=== PATIENT | female | born 1965 | race Caucasian/White ===

== ENCOUNTER 2023-11-30 07:05 | Observation (INO) ==
--- NOTE | 2023-11-30 07:16 | ED.PDOC ---
General ED Provider: Dr. COLLEEN ALEJANDRO MD Chief Complaint: Shortness of Air Stated Complaint: Patient is a 58-year-old female that reported to the emergency department for cough and shortness of breath times 2 weeks. Patient stated that on November 08, 2023 [facility] for bacterial pneumonia. Patient stated that she spent several days in the hospital and was told that prior to discharge that she had cleared a bacterial pneumonia and that her labs looked well. Patient stated that she got home and did well for a few days but then started to have cough and eventually progressive shortness of breath. Patient stated that she does not use home O2. Patient states that she does smoke daily at least 1 pack. Patient stated that her cough was productive. Patient did know what color her sputum was she said that she thought it was yellowish. Patient stated that she has not had any blood in the sputum. When asked about if she has had a fever she stated that she was in the doctor's that she only thought she may have a fever but she has not taken her own temperature. EMS stated that she was afebrile. EMS also stated that when they arrived to her house that she was coughing and she had an O2 sat of 90% on room air. They stated that they placed patient on 2 L of nasal cannula and it brought her up to 97%. Patient denied any chest pain, nausea, vomiting, diarrhea, dizziness, syncope, loss of consciousness, or any other acute symptoms not currently mentioned in HPI. Patient's vital signs are currently stable with a heart rate of 105, SpO2 of 97% on 2 L nasal cannula, blood pressure 103/80, and respiratory rate of 24 breaths/min. Patient's GCS is 15. Time Seen by Provider: 11/30/23 07:09 Mode of Arrival: Ambulance Information Source: Patient and EMT Exam Limitations: No limitations Primary Care Provider: HERACLIO TILLMAN Nursing and Triage Documentation Reviewed and Agree: Yes Does Patient Take Opioids?: No Is Patient Opioid Naive?: No What is Opioid Naive?: *Opioid Naive implies the patient is not already taking opioids or not chronically receiving opioids on a daily basis. *PRN dosing is not "usually" associated with tolerance. *Patients are at higher risk of over-sedation and aspiration. Is Patient Opioid Tolerant?: No What is Opioid Tolerant?: *Opioid Tolerance implies less than the expected response to an opioid. *Acquired tolerance is defined by the patient taking 60mg of oral morphine daily (or equianalgesic dose of another opioid) for 1 week or more. *Often associated with chronic pain. *May take more than usual dose to achieve desired pain control. Review of Systems Review Of Systems Constitutional: Reports No symptoms Eyes: Reports No symptoms Ears, Nose, Mouth, Throat: Reports No symptoms Respiratory: Reports Cough, Shortness of Breath and Wheezing Cardiac: Reports No symptoms GI: Reports No symptoms : Reports No symptoms Musculoskeletal: Reports No symptoms Skin: Reports No symptoms Neurological: Reports No symptoms Endocrine: Reports No symptoms Hematologic/Lymphatic: Reports No symptoms All Other Systems: Reviewed and Negative Physical Exam Physical Exam Appearance: Reports Other (Patient's had increased respirations and appeared to be short of breath. When placed on nasal cannula 2 L patient appears to slow her breathing down and is more comfortable.) Ill-appearing: Mild Pain Distress: None Eyes: Reports MATTHEW, EOMI and Conjunctiva clear ENT: Reports Nose normal and Oropharynx normal Neck: Supple Respiratory: Reports Airway patent, Breath sounds equal, Breath sounds diminished (Breath sounds diminished in the left mid and lower lung fernandez.), Respirations nonlabored and Crackles (Crackles in the mid and lower lung fernandez bilaterally.) Cardiovascular: Reports Pulses normal, No rub, No murmur and Tachycardia (Apical pulse of 110 bpm.) GI/: Reports Soft, Nontender, No masses and Bowel sounds normal Musculoskeletal: Reports Normal strength, ROM intact and No edema Skin: Reports Warm, Dry and Normal color Neurological: Reports Sensation intact, Motor intact, Reflexes intact, Cranial nerves intact, Alert and Oriented Psychiatric: Reports Affect appropriate and Mood appropriate Course Course 11/30/23 07:30 Orders, Labs, Meds: Lab Review 11/30/23 07:30 WBC 11.61 H RBC 3.18 L Hgb 9.0 L Hct 29.0 L MCV 91.2 MCH 28.3 MCHC 31.0 L RDW Coeff of Graciela 16.9 H Plt Count 320 Immature Gran % (Auto) 0.7 Neut % (Auto) 68.5 Lymph % (Auto) 23.9 Terrell % (Auto) 6.6 Eos % (Auto) 0.1 Baso % (Auto) 0.2 Neut # (Auto) 8.0 H Lymph # (Auto) 2.8 Terrell # (Auto) 0.8 Eos # (Auto) 0.0 Baso # (Auto) 0.0 Immature Gran # (Auto) 0.1 ESR Pending Orders Category Date Time Status ABG DRAW REQUEST Stat CARDIO 11/30/23 07:09 Ordered NEBULIZER TREATMENT Stat CARDIO 11/30/23 07:16 Ordered NEBULIZER TREATMENT Stat CARDIO 11/30/23 07:17 Ordered ED APPLY O2 .ONCE EMERGENCY 11/30/23 07:09 Active ED CONGRESSIONAL ASSISTANT APPLIED .ONCE EMERGENCY 11/30/23 07:09 Active ED IV/MEDIPORT/POWERPORT .ONCE EMERGENCY 11/30/23 07:09 Active ED VITAL SIGNS .ONCE EMERGENCY 11/30/23 07:09 Active ABG COOX Stat LAB 11/30/23 07:53 Received C-REACTIVE PROTEIN Stat LAB 11/30/23 07:30 Received CBC W/ AUTO DIFF Stat LAB 11/30/23 07:30 Results COMPREHENSIVE METABOLIC PANEL Stat LAB 11/30/23 07:30 Received D-DIMER Stat LAB 11/30/23 Ordered ESR Stat LAB 11/30/23 07:30 Results FLU A/B MOLECULAR Stat LAB 11/30/23 07:14 Received LACTIC ACID Stat LAB 11/30/23 07:30 Received MAGNESIUM Stat LAB 11/30/23 07:30 Received MRSA SCREEN Routine LAB 11/30/23 07:35 Received PROCALCITONIN Stat LAB 11/30/23 07:30 Received PT WITH INR Stat LAB 11/30/23 07:30 Received RSV Stat LAB 11/30/23 07:14 Received SARS COV-2 RNA RAPID KARINE Stat LAB 11/30/23 07:14 Received SPUTUM CULTURE Stat LAB 11/30/23 07:09 Uncollected URINALYSIS C & S IF INDICATED Stat LAB 11/30/23 07:09 Uncollected 0.9 % Sodium Chloride [Saline Flush] Meds 11/30/23 07:09 Active 1 syr IVF PRN PRN Ipratropium/Albuterol Neb [Duoneb] Meds 11/30/23 07:16 Discontinued 3 ml NEB ONCE STA Ipratropium/Albuterol Neb [Duoneb] Meds 11/30/23 07:16 Discontinued 3 ml NEB ONCE STA Methylprednisolone Sod Succ/Pf [Solu-Medrol 125 mg] Meds 11/30/23 07:17 Discontinued 125 mg IVP ONCE ONE Piperacillin Sodium/Tazobactam [Zosyn 3.375 gm] 3.375 Meds 11/30/23 07:49 Active gm 0.9 % Sodium Chloride [Sodium Chloride 100Ml] 100 ml IV ONCE Sodium Chloride 0.9% [Sodium Chloride] 1,000 ml Meds 11/30/23 07:09 Active IV BOLUS CHEST, 1V AP ONLY Stat RADS 11/30/23 07:09 Completed Medications Generic Name Dose Route Start Last Admin Trade Name Freq PRN Reason Stop Dose Admin Sodium Chloride 1,000 mls @ 1,000 mls/hr 11/30/23 07:09 11/30/23 07:48 Sodium Chloride IV 11/30/23 08:08 1,000 mls/hr BOLUS ONE Administration Piperacillin Sod/Tazobactam 100 mls @ 200 mls/hr 11/30/23 07:49 Sod 3.375 gm/ Sodium Chloride IV 11/30/23 08:18 ONCE ONE Sodium Chloride 1 syr 11/30/23 07:09 0.9% Sodium Chloride 10 Ml Disp.Syrin IVF PRN PRN To flush IV Discontinued Medications Generic Name Dose Route Start Last Admin Trade Name Freq PRN Reason Stop Dose Admin Albuterol/Ipratropium 3 ml 11/30/23 07:16 Ipratropium/Albuterol Vial.[facility] 11/30/23 07:17 ONCE STA Albuterol/Ipratropium 3 ml 11/30/23 07:16 Ipratropium/Albuterol Vial.[facility]B 11/30/23 07:17 ONCE STA Methylprednisolone Sodium Succinate 125 mg 11/30/23 07:17 11/30/23 07:48 Methylprednisolone Sod Succ/Pf 125 Mg/2 Ml Vial IVP 11/30/23 07:18 125 mg ONCE ONE Administration Vital Signs: Temp Pulse Resp BP Pulse Ox 11/30/23 07:06 97.9 F 102 H 22 H 103/80 98 Discharge Plan Discharge Patient Disposition: PLACED OBSERVATION Discharge Problem: Acute hypoxemic respiratory failure, Anemia of chronic disease, Hypokalemia, Acute hyponatremia, Sepsis due to pneumonia Did you review [place] PRESSURE W[employer] for ALL controlled substances?: Not Applicable ED Provider: COLLEEN ALEJANDRO Condition: Stable Physician Progress Note: Patient is a 58-year-old female that reported to the emergency department for cough and shortness of breath times 2 weeks. Patient stated that on November 08, 2023 she was admitted to an [facility] in [facility] for bacterial pneumonia. Patient stated that she spent several days in the hospital and was told that prior to discharge that she had cleared a bacterial pneumonia and that her labs looked well. Patient stated that she got home and did well for a few days but then started to have cough and eventually progressive shortness of breath. Patient stated that she does not use home O2. Patient states that she does smoke daily at least 1 pack. Patient stated that her cough was productive. Patient did know what color her sputum was she said that she thought it was yellowish. Patient stated that she has not had any blood in the sputum. When asked about if she has had a fever she stated that she was in the doctor's that she only thought she may have a fever but she has not taken her own temperature. EMS stated that she was afebrile. EMS also stated that when they arrived to her house that she was coughing and she had an O2 sat of 90% on room air. They stated that they placed patient on 2 L of nasal cannula and it brought her up to 97%. Patient denied any chest pain, nausea, vomiting, diarrhea, dizziness, syncope, loss of consciousness, or any other acute symptoms not currently mentioned in HPI. Patient's vital signs are currently stable with a heart rate of 105, SpO2 of 97% on 2 L nasal cannula, blood pressure 103/80, and respiratory rate of 24 breaths/min. Patient's GCS is 15. -Will order chest x-ray, baseline labs, ABG, flu test, COVID test, and RSV test. -Will give the patient IV normal saline 1 L bolus as she meets sepsis protocol. -Will give the patient a DuoNeb treatment and IV methylprednisolone 125 mg. -Will continue patient on 2 L nasal cannula to keep her O2 sat above 94%. -Pt has an 11,000 WBC with neutropphil predominance. Will give IV Zosyn 3.375 gram. -CXR shows LEFT lobe PNA. This was interpreted by the ER physician. -Pt has hypokalemia with a potassium of 2.88. WIll give IV potassium 40 meQ over 4 hours. -Will contact hospitalist at [facility] for admission. -Spoke to hospitalist Ciaran Escalera NP who has agreed to admit the pt for acute hypoxemic respiratory failure, sepsis pnemonia.
[2023-11-30 07:44] LABS: BASOPHILS % (AUTO) 0.2 % (0.0-3.0); EOSINOPHILS % (AUTO) 0.1 % (0.0-7.0); IMMATURE GRANULOCYTE # (AUTO) 0.1 (0.0-1.0); IMMATURE GRANULOCYTE % (AUTO) 0.7 % (0.0-5.0); LYMPHOCYTES # (AUTO) 2.8 K/uL (0.60-3.4); LYMPHOCYTES % (AUTO) 23.9 (10.0-50.0); MEAN CORPUSCULAR HEMOGLOBIN 28.3 pg (27.0-31.0); MEAN CORPUSCULAR VOLUME 91.2 fl (81.0-99.0); MONOCYTES # (AUTO) 0.8 K/uL (0.4-2.0); MONOCYTES % (AUTO) 6.6 (0-10); NEUTROPHILS % (AUTO) 68.5 % (42.2-75.2); PLATELET COUNT 320 10^3/uL (140-440); RDW COEFFICIENT OF VARIATION 16.9 % (11.6-14.8); RED BLOOD COUNT 3.18 10^6/ul (4.20-5.40); WHITE BLOOD COUNT 11.61 K/ul (4.6-10.2)
--- NOTE | 2023-11-30 07:47 | DI ---
EXAM: SINGLE FRONTAL VIEW OF THE CHEST HISTORY: Cough with recent pneumonia. COMPARISON: Chest x-ray 10/30/2023 FINDINGS: Cardiomediastinal silhouette is unremarkable on this limited evaluation. There is a left e ffusion and consolidation which has mildly worsened. The right lung is clear. The osseous structure s are unchanged. IMPRESSION: Worsening left effusion and consolidation that may represent pneumonia.
[2023-11-30] MEDS: SODIUM CHLORIDE 1,000 ML IV ONE (07:48)
[2023-11-30] MEDS: SOLU-MEDROL 125 MG IVP ONE (07:48)
[2023-11-30] MEDS: DUONEB NEB STA ×2 (07:51→08:04)
[2023-11-30 07:56] LABS: ALBUMIN 2.65 g/dL (3.5-5.0); ALKALINE PHOSPHATASE 91.7 U/L (38-126); ASPARTATE AMINO TRANSFERASE 62.6 U/L (14-36); BILIRUBIN,TOTAL 0.52 mg/dL (0.2-1.3); BLOOD UREA NITROGEN 10.4 mg/dL (7-17); CALCIUM 7.96 mg/dL (8.4-10.2); CARBON DIOXIDE 26.8 mmol/L (22-30.0); CREATININE 0.58 mg/dL (0.60-1.30); GLUCOSE 99.7 mg/dL (74-106); MAGNESIUM 1.64 mg/dL (1.6-2.3); POTASSIUM 2.88 mmol/L (3.5-5.1); SODIUM 133.5 mmol/L (134.5-145); TOTAL PROTEIN 6.4 g/dL (6.3-8.2)
[2023-11-30 07:57] LABS: ABG O2 HGB 93.7 % (95-100); BEecf 4.7 (-2.0-3.0); COHb 2.8 (0.5-1.5); HCO3 26.1 (21-28); MetHb 1.8 (0-1.5); TCO2 26.9 (19-24); sO2 97.9 % (94-98); tHb 8.6 g/dl (11.7-17.4)
[2023-11-30 07:58] LABS: PROTHROMBIN TIME 10.2 SEC (9.3-11.0)
[2023-11-30 07:59] LABS: ABG PH 7.61 (7.35-7.45)
[2023-11-30 08:05] LABS: MOLECULAR FLU A NEGATIVE BY NAAT (NEGATIVE); MOLECULAR FLU B NEGATIVE BY NAAT (NEGATIVE); RSV MOLECULAR NEGATIVE BY NAAT (NEGATIVE); SARS COV-2 RNA RAPID NAAT NEGATIVE (NEGATIVE)
[2023-11-30 08:22] LABS: ERYTHROCYTE SEDIMENTATION RATE 110 mm/hr (0-20)
[2023-11-30] MEDS: POTASSIUM CHLORIDE 20 MEQ/100 ML PREMIX 40 MEQ/200 ML BAG IV ONE (08:28)
[2023-11-30] MEDS: ZOSYN 3.375 GM 3.375 GM in SODIUM CHLORIDE 100ML 100 ML IV ONE (08:39)
[2023-11-30] MEDS: TYLENOL PO STA (09:34)
[2023-11-30 10:31] VITALS: BMI 21.7
[2023-11-30] MEDS: OMNIPAQUE 350 MG/ML 100ML IVP ONE (11:14)
--- NOTE | 2023-11-30 12:18 | CT ---
EXAM: CT PULMONARY ANGIOGRAM. HISTORY: Shortness of breath. PROCEDURE: After the intravenous injection of contrast a CT pulmonary angiogram was performed with c ontiguous axial CT images of the chest with multiplanar reformats, MIP images and 3-D reformats. COMPARISON: None. FINDINGS: There is normal enhancement of the pulmonary arteries with no evidence of pulmonary embolis m. The heart and thoracic aorta are normal in appearance. There is an enlarged subcarinal lymph nod e measuring 1 cm in short axis. There is ill-defined soft tissue density occluding the left lower lo be bronchus. There is a large collection of complex fluid and air in the left pleural space, nearly filling the left hemithorax, suspicious for an empyema. There is near complete consolidation of the left lung. There are degenerative changes in the spine. Impression: No evidence of pulmonary embolism. Large collection of complex fluid and air in the left pleural space, suspicious for an empyema. Soft tissue density occluding the left lower lobe bronchus. The differential diagnosis includes secr etions/mucous plug and endobronchial lesion. Near complete consolidation of the left lung, consistent with atelectasis versus pneumonia. Lymphadenopathy as described. Recommend follow-up CT in 3 months to assess stability. All CT scans are performed using dose optimization techniques as appropriate to the performed exam an d include at least one of the following: Automated exposure control, adjustment of the mA and/or kV according t o size, and the use of iterative reconstruction technique.
[2023-11-30] MEDS: VANCOMYCIN 1.5 GRAM/300 ML PREMIX 1.5 GM/300 ML BAG IV ONE (12:36)
--- NOTE | 2023-11-30 13:08 | PCM.SS ---
Provider Provider[facility] DOTTIE ANG, [facility] Ad[facility] Date Admission Date: 11/30/23 Discharge Date Discharge Date: 11/30/23 Primary Care Physician Primary Care Physician: HERACLIO TILLMAN Chief Complaint Reason For Visit: SEPSIS PNEUMONIA,HYPOKALEMIA,ACUTE HYPOXEMIC RESP History of Present Illness History of Present Illness: Admitted 11/30/23 08:14, this 58 year old /WHITE/F presented to the ER with shortness of breath. Patient states she was at [facility] 1 month ago and was treated for pneumonia. Reports being sent home with Rx for antibiotics and steroids. Presents today stating that she is still coughing up sputum, is weak, and feels that she can't get a deep breath. Chest x-ray in ER showed worsening pleural effusion, may represent pneumonia to the L lung. WBC elevated, tachycardic, and tachypneic. Lactic acid above 2, procal elevated as well. Admitted initially for pneumonia and sepsis r/o. D-dimer ordered in ER was found to be elevated after patient arrived to the floor. [facility] Medical History Cataract H26.9 - Unspecified cataract (ICD-10) Osteoarthritis M19.90 - Unspecified osteoarthritis, unspecified site (ICD-10) Pelvic fracture S32.9XXA - Fracture of unspecified parts of lumbosacral spine and pelvis, initial encounter for closed fracture (ICD-10) Hypercholesteremia E78.00 - Pure hypercholesterolemia, unspecified (ICD-10) Hypertension I10 - Essential (primary) hypertension (ICD-10) Family History FATHER Hypertension Social History Smoking and tobacco status: Former smoker Alcohol intake: current Substance use type: does not use Medications Mecications: Medications at Discharge (Home Meds & RX) amlodipine 5 mg tablet 5 mg PO DAILY 11/30/23 diclofenac sodium 75 mg tablet,delayed release 75 mg PO 2XD 11/30/23 fenofibrate 120 mg tablet 120 mg PO DAILY 11/30/23 Allergies Allergies Allergy/AdvReac Type Severity Reaction Status Date / Time No Known Allergies Allergy Verified 11/30/23 07:21 Review of Systems Constitutional: Reports Fatigue and Weakness Head: Reports Normocephalic Eyes: Reports No symptoms Ears: Reports No symptoms Nose: Reports No symptoms Mouth: Reports No symptoms Throat: Reports No symptoms Cardiovascular: Reports No symptoms Respiratory: Reports Cough and Shortness of air Gastrointestinal: Reports No symptoms Genitourinary: Reports No Symptoms Musculoskeletal: Reports No symptoms Endocrine: Reports No symptoms Hematology: Reports No symptoms Immunology: Reports No symptoms Neurological: Reports No symptoms Psychiatric: Reports No symptoms Physical Examination Appearance: Positive No Apparent Distress and Alert and Oriented x3 Head: Positive Normocephalic and Atraumatic Eyes: Positive MATTHEW Neck: Positive Supple, Non-Tender, No Masses and Trachea Midline Heart: Positive RRR and No Murmurs Respiratory: Positive Airway patent and Breath Sounds Diminished (L lung) GI/: Positive Soft, Nontender, Bowel sounds normal and No Distention Extremities: Positive Pedal Pulses Palpable Bilaterally Neurological: Positive Sensation Intact, Motor Intact, Alert and Oriented Vital Signs (Last 4 Hours) Vital Signs Last 4 Hours: Vital Signs: Last 4 Hours 11/30/23 10:08 11/30/23 11:00 Temperature 98.4 F Temperature Source Oral Pulse Rate 94 Respiratory Rate 20 Blood Pressure Left Arm 106/63 Blood Pressure Position Supine O2 Sat by Pulse Oximetry 99 Oxygen Delivery Method Room Air Room Air Height 5 ft 7 in Weight 62.8 kg Labs This Visit Labs This Visit: Labs This Visit 11/30/23 11/30/23 11/30/23 07:14 07:30 07:53 WBC 11.61 H RBC 3.18 L Hgb 9.0 L Hct 29.0 L MCV 91.2 MCH 28.3 MCHC 31.0 L RDW Coeff of Graciela 16.9 H Plt Count 320 Immature Gran % (Auto) 0.7 Neut % (Auto) 68.5 Lymph % (Auto) 23.9 [place] % (Auto) 6.6 Eos % (Auto) 0.1 Baso % (Auto) 0.2 Neut # (Auto) 8.0 H Lymph # (Auto) 2.8 [place] # (Auto) 0.8 Eos # (Auto) 0.0 Baso # (Auto) 0.0 Immature Gran # (Auto) 0.1 ESR 110 H PT 10.2 INR 0.98 Puncture Site Rrad Base Excess 4.7 H O2 Saturation 97.9 ABG pH 7.61 H* ABG pCO2 26.0 L ABG pO2 84.0 L ABG HCO3 26.1 ABG Total CO2 26.9 H Irineo Test + Hemoglobin 1.8 H Oxyhemoglobin 93.7 L Carboxyhemoglobin 2.8 H Total Hemoglobin 8.6 L O2 Delivery Device Ra Sodium 133.5 L Potassium 2.88 L Chloride 98.0 Carbon Dioxide 26.8 Anion Gap 11.58 BUN 10.4 Creatinine 0.58 L Estimated GFR (MDRD) 107.00 BUN/Creatinine Ratio 17.93 Glucose 99.7 Lactic Acid 2.98 H Calcium 7.96 L Magnesium 1.64 Total Bilirubin 0.52 AST 62.6 H ALT 23.0 Alkaline Phosphatase 91.7 Total Protein 6.40 Albumin 2.65 L Globulin 3.75 Albumin/Globulin Ratio 0.70 Procalcitonin 0.48 H D-Dimer 1681.98 H Plasma/Serum Alcohol < 10.0 Influ A Molecular Assay Negative by naat Influ B Molecular Assay Negative by naat RSV Antigen Negative by naat SARS CoV-2 RNA Rapid KARINE Negative Imaging Imaging: EXAM: CT PULMONARY ANGIOGRAM. HISTORY: Shortness of breath. PROCEDURE: After the intravenous injection of contrast a CT pulmonary angiogram was performed with contiguous axial CT images of the chest with multiplanar reformats, MIP images and 3-D reformats. COMPARISON: None. FINDINGS: There is normal enhancement of the pulmonary arteries with no evidence of pulmonary embolism. The heart and thoracic aorta are normal in appearance. There is an enlarged subcarinal lymph node measuring 1 cm in short axis. There is ill-defined soft tissue density occluding the left lower lobe bronchus. There is a large collection of complex fluid and air in the left pleural space, nearly filling the left hemithorax, suspicious for an empyema. There is near complete consolidation of the left lung. There are degenerative changes in the spine. Impression: No evidence of pulmonary embolism. Large collection of complex fluid and air in the left pleural space, suspicious for an empyema. Soft tissue density occluding the left lower lobe bronchus. The differential diagnosis includes secretions/mucous plug and endobronchial lesion. Near complete consolidation of the left lung, consistent with atelectasis versus pneumonia. Lymphadenopathy as described. Recommend follow-up CT in 3 months to assess stability. EXAM: SINGLE FRONTAL VIEW OF THE CHEST HISTORY: Cough with recent pneumonia. COMPARISON: Chest x-ray 10/30/2023 FINDINGS: Cardiomediastinal silhouette is unremarkable on this limited evaluation. There is a left effusion and consolidation which has mildly worsened. The right lung is clear. The osseous structures are unchanged. IMPRESSION: Worsening left effusion and consolidation that may represent pneumonia. Review Review Statement: I have independently reviewed and interpreted the labs/EKGs/imaging that were ordered by the ER provider. I have reviewed all outside records that are available currently in our EMR including imaging/notes/labs from previous visits. Plan Reccomendations/Plan: After elevated D-dimer noted and little to no air movement to the L lung upon auscultation, CTA ordered to r/o PE. Showed large fluid collection suspect empyema. 1. Sepsis - blood cultures pending, vanco, zosyn, and levaquin ordered, trend procal 2. L pleural effusion, suspect empyema - above antibiotics, transfer to higher level of care for thoracentesis 3. Hypokalemia - 40 mEq KCL IV given 4. Lactic Acidosis 5. Hypertension - chronic Additional Planning: Case discussed with ED Physician, Dr. Sanderson. DVT Prophylaxis: Ambulation Disposition: Admit to: Med/Surg Observation Full Code Discussed Plan of Care with Dr. Moreno. If patient discharged with Left Ventricular Systolic Dysfunction: NA Discharged with a beta sonja? [] If no, why not? [] Discharged with an chris/arb? [] If no, why not? [] Transfer to [facility] under the care of Dr. Wallace - Hospitalist Review With Patient Reviewed with Patient and Family: Patient and family have been counseled on condition and care plan and have no immediate questions. I have personally discussed and reviewed the patient's visit/current labs/imaging/decision making with Dr. Maye Moreno, my supervising attending. Total number of minutes spent with patient 85 min. More than 50% of the time s pent with this patient was devoted to counseling and coordination of care. Time of Admission:11/30/23 08:14 Time of Discharge: 11/30/23 1330 Discharge Plan Discharge Discharge Orders: Discharge Patient (ONCE); Ordered 11/30/23 Ordered By: GAVINO SEYMOUR Patient Disposition: TSF SHORT-TRM HOSP Did you review [place] PRODUCTION MECHANIC for ALL controlled substances?: No Discussed opioids are addictive and Narcan is available by prescription or from pharmacy.: No Condition: Stable
[2023-11-30 13:20] LABS: BILIRUBIN,URINE Negative (NEGATIVE); CLARITY,URINE Clear (CLEAR); COLOR,URINE Yellow (YELLOW); GLUCOSE, URINE (UA) Negative (NEGATIVE); KETONES,URINE Negative (NEGATIVE); LEUKOCYTE ESTERASE ,URINE Negative (NEGATIVE); NITRITE,URINE Negative (NEGATIVE); PH,URINE 6.5 (5-9); PROTEIN,URINE Negative (NEGATIVE); URINE, BLOOD Negative (NEGATIVE); UROBILINOGEN,URINE 0.2 (0.2)
[2023-11-30 13:26] LABS: AMPHETAMINE SCREEN,URINE NEGATIVE (NEGATIVE); BARBITURATE SCREEN,URINE NEGATIVE (NEGATIVE); BENZODIAZEPINES SCREEN,URINE NEGATIVE (NEGATIVE); CANNABINOID SCREEN,URINE POSITIVE (NEGATIVE); COCAIN SCREEN,URINE NEGATIVE (NEGATIVE); METHADONE URINE SCREEN NEGATIVE (NEGATIVE); METHAMPHETAMINES SCREEN,URINE NEGATIVE (NEGATIVE); OPIATE SCREEN,URINE NEGATIVE (NEGATIVE); OXYCODONE URINE SCREEN NEGATIVE (NEGATIVE); PHENCYCLIDINE SCREEN,URINE NEGATIVE (NEGATIVE); TRICYCLIC ANTIDEPRESSANTS URIN NEGATIVE (NEGATIVE)
[2023-11-30] MEDS: ZOSYN 4.5 GM 4.5 GM in SODIUM CHLORIDE 100ML 100 ML IV SCH (14:19)
[2023-11-30 14:53] VITALS: BP 115/80; PULSE 81; RESP 18; TEMP 97.9
[2023-11-30] MEDS: TYLENOL PO ONE (15:26)
[2023-11-30] MEDS: LEVAQUIN 750 MG/150 ML D5W 750 MG/150 ML BAG IV SCH (15:35)
[2023-11-30] MEDS ORDERED: VANCOMYCIN 1.25 GM/250 ML BAG 1.25 GM/250 ML BAG IV SCH (22:30)
[2023-12-02 14:37] LABS: SPECIMEN SOURCE Urine (.); STEP PNEUMO ORGANISM ID Not indicated. (.); STREP PNEUMO AG Negative (Negative); STREP PNEUMO BODY FLUID CULT Not indicated. (.)
== END 2023-11-30 16:33 | disposition short-term general hospital (02) ==
LOC: MEDSURG B 07:05 → ED 07:05 → MEDSURG B 10:10
PROVIDERS: ADMIT Hospitalist; ATTEND Nurse Practitioner Family
DX: Z20.822 Contact with and (suspected) exposure to COVID-19; E87.20 Acidosis, unspecified; A41.9 Sepsis, unspecified organism; F17.210 Nicotine dependence, cigarettes, uncomplicated; J90 Pleural effusion, not elsewhere classified; D64.9 Anemia, unspecified; R79.1 Abnormal coagulation profile; E87.6 Hypokalemia; I10 Essential (primary) hypertension